=== PATIENT | female | born 1970 | race Two or more races ===

== ENCOUNTER 2020-06-28 13:49 | Emergency (ER) | payer MEDICAID ==
[~2020-06-28] VITALS: Ht 152.4 cm; Wt 57.0 kg
[2020-06-28] MEDS ORDERED: ACETAMINOPHEN 325MG TABLET PO STA (18:10)
[2020-06-28 18:17] VITALS: BP 151/81
[2020-06-28 19:04] LABS: BASOPHILS % 0.7 % (0.0-2.0); EOSINOPHILS % 1.8 % (0.0-5.0); HEMATOCRIT. 38.9 % (36.0-48.0); HEMOGLOBIN. 12.7 g/dL (12.0-16.0); LYMPHOCYTES % 24.6 % (20.0-50.0); MEAN CORPUSCULAR HEMOGLOBIN 26.2 pg (28.0-32.0); MEAN CORPUSCULAR VOLUME 80.2 fL (81.0-99.0); MEAN PLATELET VOLUME 7.2 fl (7.4-10.4); MONOCYTES % 6.7 % (2.0-8.0); NEUTROPHILS % 66.2 % (40.0-76.0); PLATELET 314 x1000/uL (130-400); RED BLOOD CELL COUNT 4.85 mill/uL (4.2-5.4); RED CELL DISTRIBUTION WIDTH 14.6 % (11.6-14.6)
[2020-06-28 19:11] LABS: CHLORIDE 104 mEq/L (98-107); PROTHROMBIN TIME 10.3 sec (9.6-11.0)
[2020-06-28 19:53] LABS: CLARITY URINE CLOUDY (CLEAR); COLOR URINE YELLOW (YELLOW); KETONES URINE NEGATIVE (NEGATIVE); LEUKOCYTE ESTERASE URINE NEGATIVE (NEGATIVE); NITRITE URINE NEGATIVE (NEGATIVE); OCCULT BLOOD URINE NEGATIVE (NEGATIVE); PH URINE 6.5 (4.5-8.0); PROTEIN URINE NEGATIVE (NEGATIVE); SPECIFIC GRAVITY URINE 1.004 (1.005-1.030); UROBILINOGEN URINE 0.2 E.U./dL (0.2-1.0)
== END 2020-06-28 21:20 | disposition home or self-care (01) ==
LOC: ER 13:49 → CANBEDREQ 23:24
DX: S09.8XXA Other specified injuries of head, initial encounter (principal); M54.2 Cervicalgia; I10 Essential (primary) hypertension; V03.90XA Pedestrian on foot injured in collision with car, pick-up truck or van, unspecified whether traffic or nontraffic accident, initial encounter; Y93.01 Activity, walking, marching and hiking; Y92.488 Other paved roadways as the place of occurrence of the external cause
CPT/HCPCS: 36415; 71045; 80053; 81003; 82962; 84484; 85025; 93005; 99285

== ENCOUNTER 2023-01-06 23:50 | Emergency (ER) | payer MEDICAID ==
[~2023-01-06] VITALS: Ht 152.4 cm; Wt 79.0 kg
[2023-01-07 00:28] VITALS: TEMP 98.4; O2SAT 100
[2023-01-07 00:56] LABS: BASOPHILS % 0.8 % (0.0-2.0); EOSINOPHILS % 4.6 % (0.0-5.0); HEMOGLOBIN. 13.2 g/dL (12.0-16.0); LYMPHOCYTES % 37.7 % (20.0-50.0); MEAN CORPUSCULAR HEMOGLOBIN 27.2 pg (28.0-32.0); MEAN CORPUSCULAR VOLUME 80.2 fL (81.0-99.0); MONOCYTES % 7.6 % (2.0-8.0); NEUTROPHILS % 49.3 % (40.0-76.0); PLATELET 358 x1000/uL (130-400); RED BLOOD CELL COUNT 4.87 mill/uL (4.2-5.4); RED CELL DISTRIBUTION WIDTH 14.8 % (11.6-14.6)
[2023-01-07 01:08] LABS: CHLORIDE 107 mEq/L (98-107)
[2023-01-07 01:45] LABS: INR 0.9; PARTIAL THROMBOPLASTIN TIME 26.8 sec (23.4-31.0); PROTHROMBIN TIME 10.2 sec (9.6-11.0)
[2023-01-07] MEDS ORDERED: CLONIDINE 0.1MG TABLET PO ONE (04:00)
[2023-01-07] MEDS ORDERED: ACETAMINOPHEN 325MG TABLET PO ONE (04:45)
[2023-01-07 05:32] VITALS: BP 168/78; PULSE 57; RESP 16
[2023-01-07 05:32] LABS: CLARITY URINE CLEAR (CLEAR); COLOR URINE YELLOW (YELLOW); KETONES URINE NEGATIVE (NEGATIVE); LEUKOCYTE ESTERASE URINE NEGATIVE (NEGATIVE); NITRITE URINE NEGATIVE (NEGATIVE); OCCULT BLOOD URINE NEGATIVE (NEGATIVE); PH URINE 5.5 (4.5-8.0); PROTEIN URINE NEGATIVE (NEGATIVE); SPECIFIC GRAVITY URINE 1.003 (1.005-1.030); UROBILINOGEN URINE 0.2 E.U./dL (0.2-1.0)
[2023-01-07] MEDS ORDERED: CLON-457 MT (05:41)
== END 2023-01-07 06:24 | disposition home or self-care (01) ==
LOC: ER 23:50
DX: I10 Essential (primary) hypertension (principal); R51.9 Headache, unspecified
CPT/HCPCS: 36415; 71045; 80053; 81003; 84484; 85025; 93005; 99285